=== PATIENT | female | born 1935 | race Caucasian/White ===

== ENCOUNTER → 2017-03-10 | Outpatient (CLI) | payer MEDICARE, BC ==
[~2017-03-10] VITALS: Ht 147.3 cm; Wt 66.3 kg
[~2017-03-10] MED LIST: CALC0.25 PO; CENTTAB PO; CHLORHEXIDINE GLUCONATE 2 % 1 PACK (2 CLOTHS) TOPICAL PRN; FOLI800T PO; INSULIN HUMAN REGULAR 1,000 UNITS/10 ML VIAL SQ PRN; LACTATED RINGER'S 1000 ML IV PRN; METO100T PO; METOPROLOL TARTRATE 25 MG TAB PO PRN; POVIDONE IODINE 5% (ANTISEPSIS KIT) 4 APPLICATIONS EACH NARE PRN; PROPOFOL 200 MG/20 ML AMP IV ONE; SIMV10TA PO; SODIUM CHLORID 0.9% 500 ML IV PRN; VITA250T3 PO; VITATAB11 PO; XARE15TA PO
[2017-03-10 08:54] VITALS: BP 172/104; PULSE 97; RESP 20; TEMP 97.5; O2SAT 100
--- NOTE | 2017-03-10 11:00 | GIPROC ---
[facility] [address] [facility]. [facility], [id number] FLEXIBLE SIGMOIDOSCOPY PROCEDURE REPORT EXAM DATE: 03/10/2017 PATIENT NAME: Olive Carroll I MR #: [id number] BIRTHDATE: 1935 ORDER #: [id number] ATTENDING: Judah Zuñiga MD DAIRY SCIENTIST: Cookie Garcia Pat STATUS: outpatient INDICATIONS: The patient is a 81 yr old female here for a flexible sigmoidoscopy due to rectal bleeding PROCEDURE PERFORMED: Flexible Sigmoidoscopy with snare MEDICATIONS: None and Per Anesthesia. ESTIMATED BLOOD LOSS: None CONSENT: The patient understands the risks and benefits of the procedure and understands that these risks include, but are not limited to: sedation, allergic reaction, infection, perforation and/or bleeding. Alternative means of evaluation and treatment include, among others: physical exam, x-rays, and/or surgical intervention. The patient elects to proceed with this endoscopic procedure. medical equipment was checked for proper function. Hand hygiene and appropriate measures for infection prevention was taken. After the risks, benefits and alternatives of the procedure were thoroughly explained, Informed consent was verified, confirmed and timeout was successfully executed by the treatment team. A digital rectal exam revealed no abnormalities of the rectum The Pentax EG-[id number] endoscope was introduced through the anus and advanced to the sigmoid colon. The prep was good. The instrument was then slowly withdrawn as the colon was fully examined. COLON FINDINGS: A smooth sessile polyp measuring 10 mm in size was found in the rectum. A polypectomy was performed using snare cautery. The resection was complete, the polyp tissue was completely retrieved and sent to histology. There was mild diverticulosis noted in the sigmoid colon. The colon mucosa was otherwise normal. Retroflexed views revealed no abnormalities The scope was then completely withdrawn from the patient and the procedure terminated. ADVERSE EVENTS: There were no complications. IMPRESSIONS: 1. Sessile polyp was found in the rectum; polypectomy was performed using snare cautery 2. Mild diverticulosis was noted in the sigmoid colon 3. The colon mucosa was otherwise normal 4. Retroflexed views revealed no abnormalities 5. Revealed no abnormalities of the rectum RECOMMENDATIONS: 1. Await biopsy results 2. Fiber rich diet 3. Yearly hemoccult 4. Follow-up: GI clinic 4 week(s) 5. Use wet wipes for cleansing RECALL: Return 5 years Colonoscopy Judah Zuñiga MD eSigned: Judah Zuñiga MD 03/10/2017 10:59 AM cc:
[2017-03-10 11:17] VITALS: BP 172/103; PULSE 92; RESP 18; TEMP 97.6; O2SAT 97
== END ==
LOC: HEND 08:17
PROVIDERS: ATTEND Internal Medicine Gastroenterology
DX: D12.8 Benign neoplasm of rectum (principal); K57.30 Diverticulosis of large intestine without perforation or abscess without bleeding; K62.5 Hemorrhage of anus and rectum
CPT/HCPCS: 00810; 45338; 88305; J7120